=== PATIENT | female | born 1990 | race African-American/Black ===

== ENCOUNTER 2017-12-20 00:32 | Emergency (ER) | payer MEDICAID ==
[~2017-12-20] VITALS: Ht 172.7 cm; Wt 63.0 kg
[~2017-12-20 00:32] MED LIST: OXYC-302 PO
[2017-12-20 02:04] LABS: CLUE CELLS NONE SEEN (NONE SEEN); WET PREP WBCS MODERATE (FEW)
[2017-12-20] MEDS ORDERED: CEFTRIAXONE 250 MG ONE (02:17)
[2017-12-20] MEDS ORDERED: AZITHROMYCIN 500 MG TABLET ONE (02:17)
[2017-12-20] MEDS ORDERED: LIDOCAINE-MPF 1%, 5ML ONE (02:18)
[2017-12-20] MEDS ORDERED: CEFTRIAXONE 250 MG IM ONE (02:30)
[2017-12-20] MEDS ORDERED: AZITHROMYCIN 500 MG TABLET PO ONE (02:30)
[2017-12-20 02:36] VITALS: BP 113/78
== END 2017-12-20 02:39 | disposition home or self-care (01) ==
LOC: ED 02:15
DX: N72 Inflammatory disease of cervix uteri (principal)
CPT/HCPCS: 87210; 87491; 87591; 87808; 96372; 99284; J0696

== ENCOUNTER 2019-07-22 09:36 | Emergency (ER) | payer MEDICAID ==
[~2019-07-22] VITALS: Ht 172.7 cm; Wt 67.0 kg
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
--- NOTE | 2019-07-22 10:13 | NUR ---
X-RAY DELAY, RN/LABS IN ROOM
[2019-07-22 10:21] LABS: BASOPHILS # (AUTO) 0.05 x10^3/uL (0-0.1); BASOPHILS % (AUTO) 1 % (0-1); EOSINOPHILS # (AUTO) 0.04 x10^3/uL (0-0.4); EOSINOPHILS % (AUTO) 1 % (1-7); LYMPHOCYTES # (AUTO) 1.66 x10^3/uL (1-3.4); LYMPHOCYTES % (AUTO) 35 % (22-44); MD NO; MEAN CORPUSCULAR HEMOGLOBIN 29.3 pg (27.0-34.8); MEAN CORPUSCULAR HGB CONC 32.6 g/dL (32.4-35.8); MEAN CORPUSCULAR VOLUME 89.8 fL (80-100); MEAN PLATELET VOLUME 9.2 fL (7.4-10.4); MONOCYTES # (AUTO) 0.41 x10^3/uL (0.2-0.8); MONOCYTES % (AUTO) 9 % (2-9); NEUTROPHILS # (AUTO) 2.62 x10^3/uL (1.8-6.8); NEUTROPHILS % (AUTO) 55 % (42-75); PLATELET COUNT 437 x10^3/uL (130-400); RED BLOOD COUNT 4.36 x10^6/uL (3.82-5.3); RED CELL DISTRIBUTION WIDTH 15.8 % (9.6-15.2)
[2019-07-22 10:30] LABS: ALANINE AMINOTRANSFERASE 20 U/L (12-78); ALBUMIN 4.1 g/dL (3.4-5.0); ANION GAP 8 mmol/L (5-15); CALCIUM 8.4 mg/dL (8.5-10.1); CHLORIDE 110 mmol/L (98-107); CREATININE 0.89 mg/dL (0.55-1.02)
[2019-07-22] MEDS ORDERED: KETOROLAC 30 MG/1 ML IVPush ONE (10:30)
[2019-07-22] MEDS ORDERED: ONDANSETRON 2MG/ML, 2ML IVPush ONE (10:30)
[2019-07-22] MEDS ORDERED: SODIUM CHLORIDE 0.9% 1,000ML IVBOLUS ONE (10:30)
[2019-07-22] MEDS ORDERED: SODIUM CHLORIDE FLUSH 10ML SYR IVF ONE (10:30)
[2019-07-22 10:34] LABS: ALKALINE PHOSPHATASE 71 U/L (45-117); BILIRUBIN,TOTAL 1.4 mg/dL (0.2-1.0); TOTAL PROTEIN 8.2 g/dL (6.4-8.2)
--- NOTE | 2019-07-22 10:34 | NUR ---
PT REFUSING MEDICATIONS AT THIS TIME, DX CHEST COMPLETED, PT REMAINS ANXIOUS, CALMED ABLE. PT AMBULATED TO BR WITH STEADY GAIT
--- NOTE | 2019-07-22 10:58 | NUR ---
UA COMPLETED AND SENT TO LAB
[2019-07-22 11:16] LABS: MICROSCOPIC NOT IND
[2019-07-22 11:25] LABS: CULTURE INDICATED? NO
[2019-07-22 11:58] VITALS: BP 123/77
--- NOTE | 2019-07-22 11:59 | NUR ---
PT RESTING ON KARINA DACOSTA NOTED, ANTICIPATE DC
== END 2019-07-22 12:57 | disposition home or self-care (01) ==
LOC: ED 11:25
DX: F41.1 Generalized anxiety disorder (principal); R55 Syncope and collapse; R06.4 Hyperventilation
CPT/HCPCS: 36415; 71045; 80053; 81003; 84703; 85025; 93005; 96360; 99284; J7030

== ENCOUNTER 2020-02-27 20:11 | Emergency (ER) | payer MEDICAID ==
[~2020-02-27] VITALS: Ht 172.7 cm; Wt 75.4 kg
[2020-02-27 20:26] VITALS: BP 148/99
[2020-02-27] MEDS ORDERED: ONDANSETRON ODT 4 MG PO ONE (21:30)
[2020-02-27] MEDS ORDERED: ONDANSETRON ODT 4 MG ONE (22:19)
== END 2020-02-27 22:38 ==
LOC: ED 21:28
DX: R20.2 Paresthesia of skin (principal); R11.2 Nausea with vomiting, unspecified; R10.9 Unspecified abdominal pain; R19.7 Diarrhea, unspecified; Z90.89 Acquired absence of other organs
CPT/HCPCS: 99281